=== PATIENT | female | born 1990 | race American Indian/Alaskan Native ===

== ENCOUNTER 2019-04-14 11:05 | Emergency (ER) | payer MEDICAID ==
--- NOTE | 2019-04-14 12:04 | Event Note ---
ED Screening Note Date of service: 04/14/19 Time: 12:00 ED Screening Note: This is a 28 y.o. F. that presents to the ER with vaginal bleeding and abdominal pain for 3 days. LMP 02/22/2019 [facility] confirmed . This initial assessment/diagnostic orders/clinical plan/treatment(s) is/are subject to change based on patients health status, clinical progression and re- assessment by fellow clinical providers in the ED. Further treatment and workup at subsequent clinical providers discretion. Patient/guardian urged not to elope from the ED as their condition may be serious if not clinically assessed and managed. Initial orders include: Labs and OB US
[2019-04-14 12:08] VITALS: BP 121/73
[2019-04-14 13:12] LABS: Basophils % (Auto) 0.3 % (0.0-1.8); Eosinophils % (Auto) 0.2 % (0.0-4.3); Hemoglobin 12.4 gm/dl (10.1-14.3); Lymphocytes # (Auto) 1.9 K/mm3 (1.2-5.4); Lymphocytes % (Auto) 18.6 % (13.4-35.0); Mean Corpuscular HGB Conc 35 % (30-34); Mean Corpuscular Volume 91 fl (79-97); Monocytes # (Auto) 0.5 K/mm3 (0.0-0.8); Monocytes % (Auto) 5.1 % (0.0-7.3); Platelet Count 363 K/mm3 (140-440); Red Blood Count 3.84 M/mm3 (3.65-5.03); Red Cell Distribution Width 13.1 % (13.2-15.2)
[2019-04-14 13:57] LABS: Mucus,Urine 3+ /HPF
[2019-04-14 14:01] LABS: Bacteria,Urine 2+ /HPF (Negative); Bilirubin,Urine NEG (Negative); Blood,Urine NEG (Negative); Color,Urine Amber (Yellow)
[2019-04-14] MEDS ORDERED: ACETAMINOPHEN 325 MG TAB PO ONE (14:30)
--- NOTE | 2019-04-14 14:30 | Emergency Department Report ---
ED Female HPI - General Chief complaint: Vaginal Bleeding Stated complaint: POSS PREGANCY/VAG BLEEDING Time Seen by Provider: 04/14/19 11:59 Source: patient Mode of arrival: Ambulatory Limitations: No Limitations - History of Present Illness Initial comments: This 28-year-old female 001 who presents to ED stating that the past 2 days she has had light pink vaginal discharge upon wiping after urinating. Patient also complaining of pelvic and lower back pain for the past 2 days. Patient states she is unsure of her last menstrual cycle but knows it was sometime in January. Patient states that she has been to [facility] for confirmed test was positive. She denies fevers/chills/nausea vomiting or any other symptoms. - Related Data Previous Rx's Medication Instructions Recorded Last Taken Type Ibuprofen [Motrin 600 MG tab] 600 mg PO Q6H #60 tablet 08/08/15 Unknown Rx HYDROcodone/APAP 10-325 [[place] 1 each PO Q6HR PRN #20 tablet 05/12/16 Unknown Rx 10/325] Ibuprofen [Motrin 800 MG tab] 800 mg PO Q8HR PRN #30 tablet 05/12/16 Unknown Rx Acetaminophen [Tylenol] 325 mg PO TID #30 capsule 04/14/19 Unknown Rx Nitrofurantoin [place]/M-Cryst 100 mg PO Q12HR #14 capsule 04/14/19 Unknown Rx [Macrobid CAP] Allergies Allergy/AdvReac Type Severity Reaction Status Date / Time latex Allergy Hives Verified 04/14/19 11:16 ED Review of Systems ROS: Stated complaint: POSS PREGANCY/VAG BLEEDING Other details as noted in HPI Comment: All other systems reviewed and negative ED Past Medical Hx - Past Medical History Previous Medical History?: Yes Hx Hypertension: No Hx Heart Attack/AMI: No Hx Congestive Heart Failure: No Hx Diabetes: No Hx Deep Vein Thrombosis: No Hx Renal Disease: No Hx Sickle Cell Disease: No Hx Seizures: Yes (Epilepsy) Hx Asthma: No Hx COPD: No Hx HIV: No - Surgical History Past Surgical History?: No - Social History Smoking Status: Never Smoker Substance Use Type: None - Medications Home Medications: Home Medications Medication Instructions Recorded Confirmed Last Taken Type Ibuprofen [Motrin 600 MG tab] 600 mg PO Q6H #60 tablet 08/08/15 Unknown Rx HYDROcodone/APAP 10-325 [[place] 1 each PO Q6HR PRN #20 tablet 05/12/16 Unknown Rx 10/325] Ibuprofen [Motrin 800 MG tab] 800 mg PO Q8HR PRN #30 tablet 05/12/16 Unknown Rx Acetaminophen [Tylenol] 325 mg PO TID #30 capsule 04/14/19 Unknown Rx Nitrofurantoin [place]/M-Cryst 100 mg PO Q12HR #14 capsule 04/14/19 Unknown Rx [Macrobid CAP] ED Physical Exam - General Limitations: No Limitations General appearance: alert, in no apparent distress - Head Head exam: Present: atraumatic, normocephalic - Eye Eye exam: Present: normal appearance - ENT ENT exam: Present: mucous membranes moist - Neck Neck exam: Present: normal inspection - Respiratory Respiratory exam: Present: normal lung sounds bilaterally. Absent: respiratory distress - Cardiovascular Cardiovascular Exam: Present: regular rate, normal rhythm. Absent: systolic murmur, diastolic murmur, rubs, gallop - GI/Abdominal GI/Abdominal exam: Present: soft, normal bowel sounds. Absent: distended, tenderness, guarding - Extremities Exam Extremities exam: Present: normal inspection - Back Exam Back exam: Present: normal inspection - Neurological Exam Neurological exam: Present: alert, oriented X3 - Psychiatric Psychiatric exam: Present: normal affect, normal mood - Skin Skin exam: Present: warm, dry, intact, normal color. Absent: rash ED Course Vital Signs 04/14/19 12:06 Temperature 98.1 F Pulse Rate 111 H Respiratory 18 Rate Blood Pressure 121/73 O2 Sat by Pulse 98 Oximetry ED Medical Decision Making - Lab Data Result diagrams: 04/14/19 12:10 Laboratory Last Values WBC 10.4 K/mm3 (4.5-11.0) 04/14/19 12:10 RBC 3.84 M/mm3 (3.65-5.03) 04/14/19 12:10 Hgb 12.4 gm/dl (10.1-14.3) 04/14/19 12:10 Hct 35.0 % (30.3-42.9) 04/14/19 12:10 MCV 91 fl (79-97) 04/14/19 12:10 MCH 32 pg (28-32) 04/14/19 12:10 MCHC 35 % (30-34) H 04/14/19 12:10 RDW 13.1 % (13.2-15.2) L 04/14/19 12:10 Plt Count 363 K/mm3 (140-440) 04/14/19 12:10 Lymph % (Auto) 18.6 % (13.4-35.0) 04/14/19 12:10 [place] % (Auto) 5.1 % (0.0-7.3) 04/14/19 12:10 Eos % (Auto) 0.2 % (0.0-4.3) 04/14/19 12:10 Baso % (Auto) 0.3 % (0.0-1.8) 04/14/19 12:10 Lymph # 1.9 K/mm3 (1.2-5.4) 04/14/19 12:10 [place] # 0.5 K/mm3 (0.0-0.8) 04/14/19 12:10 Eos # 0.0 K/mm3 (0.0-0.4) 04/14/19 12:10 Baso # 0.0 K/mm3 (0.0-0.1) 04/14/19 12:10 Seg Neutrophils % 75.8 % (40.0-70.0) H 04/14/19 12:10 Seg Neutrophils # 7.9 K/mm3 (1.8-7.7) H 04/14/19 12:10 HCG, Qual Positive (Negative) 04/14/19 12:10 HCG, Quant 9713 mIU/mL (0-4) H 04/14/19 12:10 Urine Color [place] (Yellow) 04/14/19 13:30 Urine Turbidity Slightly-cloudy (Clear) 04/14/19 13:30 Urine pH 6.0 (5.0-7.0) 04/14/19 13:30 Ur Specific [place] 1.025 (1.003-1.030) 04/14/19 13:30 Urine Protein 100 mg/dl mg/dL (Negative) 04/14/19 13:30 Urine Glucose (UA) Neg mg/dL (Negative) 04/14/19 13:30 Urine Ketones Neg mg/dL (Negative) 04/14/19 13:30 Urine Blood Neg (Negative) 04/14/19 13:30 Urine Nitrite Pos (Negative) 04/14/19 13:30 Ur Reducing Substances Not Reportable 04/14/19 13:30 Urine Bilirubin Neg (Negative) 04/14/19 13:30 Urine Ictotest Not Reportable 04/14/19 13:30 Urine Urobilinogen 2.0 mg/dL (<2.0) 04/14/19 13:30 Ur Leukocyte Esterase Sm (Negative) 04/14/19 13:30 Urine WBC (Auto) 41.0 /HPF (0.0-6.0) H 04/14/19 13:30 Urine RBC (Auto) 8.0 /HPF (0.0-6.0) 04/14/19 13:30 U Epithel Cells (Auto) 7.0 /HPF (0-13.0) 04/14/19 13:30 Urine Bacteria (Auto) 2+ /HPF (Negative) 04/14/19 13:30 Urine Mucus 3+ /HPF 04/14/19 13:30 Blood Type B POSITIVE 04/14/19 12:10 - Radiology Data Radiology results: report reviewed, image reviewed OB Ultrasound HISTORY: vaginal bleeding and pain, + preg. TECHNIQUE: Grayscale and color Doppler imaging performed. COMPARISON: None FINDINGS: Uterus measures 8.8 x 4.9 x 6.2 cm with tiny cystic structure in the uterine fundal region with mean diameter of approximately 0.9 cm. This would correspond with an EGA of 5 weeks and 5 days. No pole or yolk sac identified. Both ovaries appear unremarkable. No pelvic free fluid. IMPRESSION: Tiny cystic structure in the region of the uterine fundus may repr esent an early gestational sac. Correlate with beta hCG. Signer Name: Jez Schmidt MD Signed: 04/14/2019 2:27 PM Workstation Name: [id number] Transcribed By: OANH Dictated By: Jez Schmidt MD Electronically Authenticated By: Jez Schmidt MD Signed Date/Time: 04/14/19 2187 - Medical Decision Making 28-year-old female presents to ED with vaginal spotting during / UTI ED course: Pt received ultra sound, CBC, urinalysis, test and quant itative ED All labs within normal limits, urinalysis is positive for acute cystitis. We'll treat with Macrobid Ultrasound show cystic structure measuring 5 weeks and 5 days. See reported above Vital signs normalized patient is in no acute distress. I discussed with the patient if follow-up with her. Discussed follow-up with [facility] in 2 days for repeat Quant as well as ultrasound in the next 1-2 weeks. I discussed all labs and ultrasound findings with the patient. I discussed with the patient that he if bleeding worsens or new symptoms develop to return to ED immediately Critical care attestation.: If time is entered above; I have spent that time in minutes in the direct care of this critically ill patient, excluding procedure time. ED Disposition Clinical Impression: Acute cystitis during Disposition: DC-01 TO HOME OR SELFCARE Is pt being admited?: No Does the pt Need Aspirin: No Condition: Stable Instructions: Threatened Miscarriage (ED), (ED), Urinary Tract Infect ion in Women (ED) Additional Instructions: Make sure to follow up with the [facility] as discussed. Take all your medications as you've been prescribed. If you have any worsening symptoms or develop new symptoms please return to ED immediately. Prescriptions: Nitrofurantoin [place]/M-Cryst [Macrobid CAP] 100 mg PO Q12HR #14 capsule Acetaminophen [Tylenol] 325 mg PO TID #30 capsule Referrals: [facility] [Provider Group] - 3-5 Days Forms: Work/School Release Form(ED) Time of Disposition: 14:51
== END 2019-04-14 15:28 | disposition home or self-care (01) ==
LOC: ED 11:05
DX: O23.11 Infections of bladder in pregnancy, first trimester (principal); O99.351 Diseases of the nervous system complicating pregnancy, first trimester; G43.909 Migraine, unspecified, not intractable, without status migrainosus; Z79.899 Other long term (current) drug therapy; Z91.040 Latex allergy status; Z3A.01 Less than 8 weeks gestation of pregnancy
CPT/HCPCS: 36415; 76801; 81001; 84702; 84703; 85025; 86900; 86901; 87076; 87086; 87186

== ENCOUNTER 2019-06-06 20:10 | Emergency (ER) | payer MEDICAID, OTHER ==
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
[2019-06-06 22:13] LABS: Basophils % (Auto) 0.4 % (0.0-1.8); Eosinophils % (Auto) 0.3 % (0.0-4.3); Hematocrit 37.2 % (30.3-42.9); Hemoglobin 12.5 gm/dl (10.1-14.3); Lymphocytes # (Auto) 2.4 K/mm3 (1.2-5.4); Lymphocytes % (Auto) 20.9 % (13.4-35.0); Mean Corpuscular HGB Conc 34 % (30-34); Mean Corpuscular Volume 91 fl (79-97); Monocytes # (Auto) 0.6 K/mm3 (0.0-0.8); Monocytes % (Auto) 5.3 % (0.0-7.3); Platelet Count 370 K/mm3 (140-440); Red Blood Count 4.08 M/mm3 (3.65-5.03); Red Cell Distribution Width 13.2 % (13.2-15.2)
[2019-06-06 22:23] LABS: INR 1.04 (0.87-1.13)
[2019-06-06 22:37] LABS: Alanine Aminotransferase 8 units/L (7-56); Albumin 4.6 g/dL (3.9-5); BUN/Creatinine Ratio 11; Blood Urea Nitrogen 8 mg/dL (7-17); Calcium 9.7 mg/dL (8.4-10.2); Hemolysis Index 4
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
[2019-06-06 23:09] VITALS: BP 123/78
--- NOTE | 2019-06-06 23:19 | Ultrasound Report ---
ULTRASOUND PELVIS INDICATION / CLINICAL INFORMATION: vaginal bleeding pelvic pain. Patient had D&C 6 weeks ago. TECHNIQUE: Transabdominal. Transvaginal Duplex Color Doppler used: Yes. COMPARISON: None available FINDINGS: UTERUS: Present. - Appearance (if present): The uterus is of normal size. - Size in cm (if present): 10.3 x 5.0 x 5.5 cm. - Endometrial Complex (if present): The endometrium is thickened and heterogeneous in appearance. End ometrial thickness is 18 mm.. There is focal hypoechoic masslike structure measuring 12 mm near the s uperior aspect of the endometrium. This is associated with soft tissue vascularity and increased bloo d flow.- Mass lesions: None. - Additional findings: None. RIGHT ADNEXA: No significant ovarian cyst or mass. Normal color Doppler blood flow. LEFT ADNEXA: No significant ovarian cyst or mass. Normal color Doppler blood flow. FREE FLUID: None. ADDITIONAL FINDINGS: None. IMPRESSION: 1. Abnormal endometrial thickening and heterogeneity. In the superior portion of the endometrium ther e is hypoechoic masslike structure measuring 12 mm that is associated with focal increased vascularit y. Although not definitive, the possibility of retained products of conception or possibly gestationa l trophoblastic disease should be considered 2. No other significant finding. Signer Name: Liset Loja MD Signed: 06/06/2019 11:15 PM Workstation Name: [id number]
== END 2019-06-07 00:39 | disposition home or self-care (01) ==
LOC: ED 20:10
DX: N92.0 Excessive and frequent menstruation with regular cycle (principal); G43.909 Migraine, unspecified, not intractable, without status migrainosus; Z79.899 Other long term (current) drug therapy; Z91.040 Latex allergy status
CPT/HCPCS: 36415; 76801; 76817; 76830; 76856; 80053; 84702; 85025; 85610; 85730; 86850; 86900; 86901